=== PATIENT | female | born 1990 | race Caucasian/White ===

== ENCOUNTER 2017-09-21 11:30 | Emergency (ER) | payer OTHER ==
[2017-09-21] MEDS ORDERED: TYLENOL EXTRA STRENGTH 500 MG PO STA (11:47)
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
[2017-09-21] MEDS ORDERED: TYLENOL EXTRA STRENGTH 500 MG ONE (12:03)
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
[2017-09-21 12:38] VITALS: BP 128/72; PULSE 80; O2SAT 99
== END 2017-09-21 12:45 | disposition home or self-care (01) ==
LOC: ED 11:30
DX: S09.90XA Unspecified injury of head, initial encounter (principal); L98.9 Disorder of the skin and subcutaneous tissue, unspecified; W22.8XXA Striking against or struck by other objects, initial encounter; Y93.F9 Activity, other caregiving; Y92.129 Unspecified place in nursing home as the place of occurrence of the external cause
CPT/HCPCS: 70450; 99283; A9270-GY

== ENCOUNTER 2019-05-10 18:03 | Emergency (ER) | payer MEDICAID, OTHER ==
[2019-05-10 18:15] VITALS: O2SAT 100
--- NOTE | 2019-05-10 18:25 | ERPHSYRPT ---
- History of Present Illness Time Seen by Provider: 05/10/19 18:22 Source: patient Patient Subjective Stated Complaint: Pt states "I started to have abdominal pain today at work and I have already had a miscarraige and my doctor is worried." Triage Nursing Assessment: Pt presented alert and oriented X 3, skin pwd. PT ambulates with an upright steady gait, able to speak in clear full sentences pt in no apprent respiratory distress. g5, p3, Physician History: The patient is a 28-year-old -0-1-3 who is currently 8 weeks estimated gestational age by LMP reportedly on March 16, 2019 presents with a chief complaint of abdominal cramping, spotting, and concern for having a miscarriage. Onset reportedly was this morning. The patient reportedly spoke to her FOREIGN SERVICE OFFICER and Austin Shipley and was told to come to the emergency department for further evaluation and management. She is noticed having bilateral abdominal cramping that radiates to her back that is since resolved. She denies vomiting, diarrhea, constipation, vaginal discharge and vaginal hemorrhage at this time. There is no reported dizziness, near syncope or syncope. Silvia having nausea since she has been and recently just had a prescription of Zofran filled today. Associated Symptoms: nausea, abdominal pain, No vomiting Allergies/Adverse Reactions: No Known Drug Allergies Allergy (Verified 05/10/19 18:15) Home Medications: No Reportable Medications [No Reported Medications] 09/21/17 [History] Hx Tetanus, Diphtheria Vaccination/Date Given: Yes Hx Influenza Vaccination/Date Given: No Hx Pneumococcal Vaccination/Date Given: No Immunizations Up to Date: Yes - Review of Systems Constitutional: No Fever, No Chills Eyes: No Symptoms Ears, Nose, & Throat: No Symptoms Respiratory: No Cough, No Dyspnea, No Dyspnea on Exertion (LEWIS), No Stridor, No Wheezing Cardiac: No Chest Pain, No Palpitations, No Syncope Abdominal/Gastrointestinal: Abdominal Pain, Nausea, No Vomiting (Silvia having nausea since she has been and recently just had a prescription of Zofran filled today.), No Hematemesis, No Hematochezia Genitourinary Symptoms: , Vaginal Bleeding, No Dysuria, No Frequency, No Hematuria, No Vaginal Discharge, No Vaginal Itching Skin: No Symptoms Neurological: No Symptoms, No Headache, No Seizure All Other Systems: Reviewed and Negative - Past Medical History Pertinent Past Medical History: No - Past Surgical History Past Surgical History: Yes Other Surgical History: leap - Social History Smoking Status: Never smoker Exposure to second hand smoke: No Drug Use: none Patient Lives Alone: No - Female History Hx Last Menstrual Period: 03/16/2019 Hx Now: Yes Expected Date of Delivery: 12/22/19 - Nursing Vital Signs Nursing Vital Signs: Initial Vital Signs Temperature 98.1 F 05/10/19 18:09 Pulse Rate 102 H 05/10/19 18:09 Respiratory Rate 20 05/10/19 18:09 Blood Pressure 130/72 05/10/19 18:09 O2 Sat by Pulse Oximetry 100 05/10/19 18:09 Pain Scale Pain Intensity 4 - Physical Exam General Appearance: no apparent distress, alert, other (No obvious distress and the patient was watching television when I entered the room.) Eye Exam: PERRL/EOMI, No scleral icterus, No pale conjunctivae, No photophobia, No EOM palsy/anisocoria Ears, Nose, Throat Exam: normal ENT inspection, pharynx normal, No pharyngeal erythema, No tonsillar exudate Neck Exam: normal inspection, non-tender, supple Respiratory Exam: normal breath sounds, chest tenderness, lungs clear, airway intact, No respiratory distress, No diminished breath sounds Cardiovascular Exam: regular rate/rhythm, normal heart sounds, normal peripheral pulses, No murmur, No friction rub, No gallop, No tachycardia Gastrointestinal/Abdomen Exam: soft, No tenderness, No distention, No mass, No guarding, No ecchymosis Pelvic Exam: normal external exam, other (Cervix was normal in appearance. No discharge or blood in the vaginal vault. External cervical os was low), No cervical motion tenderness, No vaginal bleeding, No vaginal discharge Rectal Exam: deferred Back Exam: normal inspection Extremity Exam: normal inspection Neurologic Exam: alert, oriented x 3, cooperative, normal mood/affect Skin Exam: normal color, warm, dry, No rash SpO2 Interpretation: normal SpO2: 100 O2 Delivery: Room Air - Course Nursing assessment & vital signs reviewed: Yes Ordered Tests: Active Orders 24 hr Category Date Time Status IV Insertion STAT Care 05/10/19 18:22 Active Pelvic Exam Assist STAT Care 05/10/19 19:47 Active OB <14 WKS 1ST GESTATION [US] Stat Exams 05/10/19 18:23 Taken BMP Stat Lab 05/10/19 18:35 Completed CBC W DIFF Stat Lab 05/10/19 18:35 Completed HCG QUALITATIVE,SERUM Stat Lab 05/10/19 18:35 Completed UA W/RFX UR CULTURE Stat Lab 05/10/19 18:28 Completed Lab/Rad Data: Laboratory Result Diagrams 05/10/19 18:35 05/10/19 18:35 Laboratory Results 05/10/19 05/10/19 05/10/19 Range/Units 18:35 18:35 18:35 WBC (4.0-10.5) K/mm3 RBC (4.1-5.4) M/mm3 Hgb (12.0-16.0) gm/dl Hct (35-47) % MCV (78-100) fl MCH (26-32) pg MCHC (32-36) g/dl RDW (11.5-14.0) % Plt Count (150-450) K/mm3 MPV (7.5-11.0) fl Gran % (36.0-66.0) % Eos # (Auto) (0-0.5) Absolute Lymphs (auto) (1.0-4.6) Absolute Monos (auto) (0.0-1.3) Lymphocytes % (24.0-44.0) % Monocytes % (0.0-12.0) % Eosinophils % (0.00-5.0) % Basophils % (0.0-0.4) % Absolute Granulocytes (1.4-6.9) Basophils # (0-0.4) Sodium 135 L (137-145) mmol/L Potassium 3.2 L (3.5-5.1) mmol/L Chloride 101 (98-107) mmol/L Carbon Dioxide 26 (22-30) mmol/L Anion Gap 11.0 (5-15) MEQ/L BUN 5 L (7-17) mg/dL Creatinine 0.40 L (0.52-1.04) mg/dL Estimated GFR > 60.0 ML/MIN Glucose 89 (74-106) mg/dL Calcium 9.3 (8.4-10.2) mg/dL Serum , Qual POSITIVE (Negative) Urine Color (YELLOW) Urine Appearance (CLEAR) Urine pH (5-6) Ur Specific [place] (1.005-1.025) Urine Protein (Negative) Urine Ketones (NEGATIVE) Urine Blood (0-5) Nadir/ul Urine Nitrite (NEGATIVE) Urine Bilirubin (NEGATIVE) Urine Urobilinogen (0-1) mg/dL Ur Leukocyte Esterase (NEGATIVE) Urine WBC (Auto) (0-5) /HPF Urine RBC (Auto) (0-2) /HPF U Epithel Cells (Auto) (FEW) /HPF Urine Bacteria (Auto) (NEGATIVE) /HPF Urine Mucus (Auto) (NEGATIVE) /HPF Urine Culture Reflexed (NO) Urine Glucose (NEGATIVE) mg/dL ABO Group A Rh Factor POSITIVE Antibody Screen NEGATIVE (NEGATIVE) 05/10/19 05/10/19 Range/Units 18:35 18:28 WBC 12.1 H (4.0-10.5) K/mm3 RBC 4.17 (4.1-5.4) M/mm3 Hgb 11.1 L (12.0-16.0) gm/dl Hct 34.5 L (35-47) % MCV 82.7 (78-100) fl MCH 26.6 (26-32) pg MCHC 32.2 (32-36) g/dl RDW 14.1 H (11.5-14.0) % Plt Count 397 (150-450) K/mm3 MPV 9.4 (7.5-11.0) fl Gran % 73.5 H (36.0-66.0) % Eos # (Auto) 0.05 (0-0.5) Absolute Lymphs (auto) 2.42 (1.0-4.6) Absolute Monos (auto) 0.72 (0.0-1.3) Lymphocytes % 20.0 L (24.0-44.0) % Monocytes % 5.9 (0.0-12.0) % Eosinophils % 0.4 (0.00-5.0) % Basophils % 0.2 (0.0-0.4) % Absolute Granulocytes 8.90 H (1.4-6.9) Basophils # 0.02 (0-0.4) Sodium (137-145) mmol/L Potassium (3.5-5.1) mmol/L Chloride (98-107) mmol/L Carbon Dioxide (22-30) mmol/L Anion Gap (5-15) MEQ/L BUN (7-17) mg/dL Creatinine (0.52-1.04) mg/dL Estimated GFR ML/MIN Glucose (74-106) mg/dL Calcium (8.4-10.2) mg/dL Serum , Qual (Negative) Urine Color STRAW (YELLOW) Urine Appearance CLEAR (CLEAR) Urine pH 7.0 (5-6) Ur Specific [place] 1.008 (1.005-1.025) Urine Protein NEGATIVE (Negative) Urine Ketones NEGATIVE (NEGATIVE) Urine Blood SMALL (0-5) Nadir/ul Urine Nitrite NEGATIVE (NEGATIVE) Urine Bilirubin NEGATIVE (NEGATIVE) Urine Urobilinogen NEGATIVE (0-1) mg/dL Ur Leukocyte Esterase NEGATIVE (NEGATIVE) Urine WBC (Auto) NONE (0-5) /HPF Urine RBC (Auto) NONE (0-2) /HPF U Epithel Cells (Auto) NONE (FEW) /HPF Urine Bacteria (Auto) RARE (NEGATIVE) /HPF Urine Mucus (Auto) SLIGHT (NEGATIVE) /HPF Urine Culture Reflexed NO (NO) Urine Glucose NEGATIVE (NEGATIVE) mg/dL ABO Group Rh Factor Antibody Screen (NEGATIVE) - Progress Progress: unchanged Progress Note: 05/10/19 19:17 The technical buyer performed a transvaginal ultrasound confirming a twin intrauterine with cardiac activity. There are 2 amniotic sacs into yolk sacs and both ovaries are appear to be within normal limits. Baby A's crown-rump length appears to be 1.6 cm and baby B's crown-rump length appears to be 1.6 cm. 05/10/19 20:18 Nontoxic in appearance. Afebrile the patient appears to be well-hydrated. She has no evidence of active vaginal bleeding on my exam. She had no significant abdominal tenderness, specifically right lower quadrant abdominal tenderness to suggest appendicitis. Her work-up was relatively within normal limits and her Rh status was positive. Ultrasound demonstrated a twin IUP within the first trimester with no evidence of ectopic or adnexal mass or evidence of ovarian torsion. This was the techs review and currently awaiting formal radiology review per department policy. The patient was instructed to follow- up with her FOREIGN SERVICE OFFICER and to call and make an appointment to schedule outpatient follow-up and in the meantime, she was instructed to take Tylenol only for any aches or pains in addition to fever as instructed on the medication bottle and she can purchase this medication [id number]. He agreed with verbally understood the discharge plan. Counseled pt/family regarding: lab results, diagnosis, need for follow-up, rad results - Departure Departure Disposition: Home Clinical Impression: Abdominal pain during in first trimester, Vaginal bleeding, Threatened in first trimester Condition: Stable Critical Care Time: No Instructions: Threatened Miscarriage (DC), Bleeding With (DC) Additional Instructions: Please call and inform your FOREIGN SERVICE OFFICER about your ED work-up today and schedule an outpatient follow-up appointment at the discretion of your primary care provider.
[2019-05-10 18:48] LABS: BASOPHIL % 0.2 % (0.0-0.4); Basophil (Absolute #) 0.02 (0-0.4); Eosinophil % 0.4 % (0.00-5.0); Eosinophil (Absolute #) 0.05 (0-0.5); Hematocrit 34.5 % (35-47); Hemoglobin 11.1 gm/dl (12.0-16.0); Lymphocyte (Absolute #) 2.42 (1.0-4.6); Mean Cell Volume 82.7 fl (78-100); Mean Corpuscular Hemoglobin 26.6 pg (26-32); Mean Corpuscular Hgb Concent. 32.2 g/dl (32-36); Mean Platelet Volume 9.4 fl (7.5-11.0); Monocyte (Absolute #) 0.72 (0.0-1.3); Monocytes % 5.9 % (0.0-12.0); Neutrophil % 73.5 % (36.0-66.0); Platelet Count 397 K/mm3 (150-450); Red Blood Count 4.17 M/mm3 (4.1-5.4); Red Cell Distribution Width 14.1 % (11.5-14.0); White Blood Count 12.1 K/mm3 (4.0-10.5)
[2019-05-10 19:04] LABS: BLOOD UREA NITROGEN 5 mg/dL (7-17); CHLORIDE 101 mmol/L (98-107); Calcium 9.3 mg/dL (8.4-10.2); Carbon Dioxide 26 mmol/L (22-30); Glucose 89 mg/dL (74-106); Potassium 3.2 mmol/L (3.5-5.1); SODIUM 135 mmol/L (137-145)
[2019-05-10 19:15] LABS: Appearance CLEAR (CLEAR); Bacteria RARE /HPF (NEGATIVE); Bilirubin NEGATIVE (NEGATIVE); Blood SMALL Ery/ul (0-5); Glucose NEGATIVE (NEGATIVE); Ketones NEGATIVE (NEGATIVE); Leukocyte Esterase NEGATIVE (NEGATIVE); Mucus SLIGHT /HPF (NEGATIVE); Nitrite NEGATIVE (NEGATIVE); Protein,Urine Dip NEGATIVE (Negative); Specific Gravity 1.008 (1.005-1.025); Urobilinogen NEGATIVE mg/dL (0-1)
[2019-05-10 19:45] LABS: ABO TYPING A; Antibody Screen NEGATIVE (NEGATIVE); RH TYPING POSITIVE
[2019-05-10 19:52] VITALS: BP 137/70; PULSE 100
--- NOTE | 2019-05-11 08:36 | XRAY ---
Indication: Cramping and spotting. Two-dimensional transvaginal early OB ultrasound performed. Comparison: None There is a single intrauterine gestational sac with 2 poles and 2 yolk sacs. Mean crown-rump length for both twin A and twin B is 1.61 cm corresponding to 8 weeks 0 days. heart rate is 171 and 161 bpm. No abnormal subchorionic fluid. Left and right ovaries are unremarkable. No suspicious adnexal mass or free fluid. Impression: Viable intrauterine twin both measuring 8 weeks 0 days. Nothing acute. Comment: Preliminary report was given.
== END 2019-05-10 20:06 | disposition home or self-care (01) ==
LOC: ED 18:03
DX: O26.891 Other specified pregnancy related conditions, first trimester (principal); O20.0 Threatened abortion; Z3A.08 8 weeks gestation of pregnancy
CPT/HCPCS: 36000; 36415; 76801; 80048; 81001; 81025; 85025; 86850; 86900; 86901; 99284

== ENCOUNTER 2019-06-01 06:19 | Emergency (ER) | payer SELFPAY ==
[2019-06-01] MEDS ORDERED: Sodium Chloride 0.9% 1000 ML 1,000 ML IV STA (06:37)
[2019-06-01] MEDS ORDERED: Zofran 4 MG/2 ML VIAL IV ONE (06:37)
--- NOTE | 2019-06-01 06:37 | ERPHSYRPT ---
- History of Present Illness Source: patient Exam Limitations: no limitations Associated Symptoms: nausea, vomiting, loss of appetite, No abdominal pain, No shortness of breath, No cough, No fever, No headaches, No syncope Hx Tetanus, Diphtheria Vaccination/Date Given: Yes Hx Influenza Vaccination/Date Given: No Hx Pneumococcal Vaccination/Date Given: No <MARISELA PARR - Last Filed: 06/01/19 07:11> <SHE CORTEZ - Last Filed: 06/01/19 07:30> - History of Present Illness Time Seen by Provider: 06/01/19 06:28 Physician History: The patient is a 28 y/o female who is currently 11w1d with twin who presents with dizziness, nausea and vomiting. Onset reportedly was three days ago. She endorsed having multiple episodes of nonbilious/nonbloody vomiting and reports "dizziness" when standing. She reportedly has been unble to keep anything liquid of solid down. She believes she has been prescribed ondansetron to take for her nausea and vomiting, but she has not taken this medication in the last 48-hours because it doesn't work. She has an appointment scheduled with her OB this Thursday. She hand no additional complaints. She became dizzy at work and was instructed by her employer to leave and go to the ED to get evaluated. Her OB is Dr. Garcia. (MARISELA PARR) Allergies/Adverse Reactions: No Known Drug Allergies Allergy (Verified 06/01/19 06:28) Home Medications: Vits W-Ca,Fe,FA(<1Mg) [] 1 tab PO DAILY 06/01/19 [History] - Review of Systems Constitutional: No Fever, No Chills Eyes: No Symptoms Ears, Nose, & Throat: No Symptoms Respiratory: No Cough, No Dyspnea, No Dyspnea on Exertion (LEWIS) Cardiac: No Chest Pain, No Edema, No Palpitations, No Syncope, No Orthopnea, No PND Abdominal/Gastrointestinal: Nausea, Vomiting, No Abdominal Pain, No Diarrhea, No Constipation, No Hematemesis, No Hematochezia Genitourinary Symptoms: No Symptoms, No Dysuria, No Frequency, No Hematuria, No Vaginal Bleeding, No Vaginal Discharge Musculoskeletal: No Symptoms Skin: No Symptoms Neurological: Dizziness, No Focal Weakness, No Gait Changes, No Headache Endocrine: No Symptoms Hematologic/Lymphatic: No Symptoms Immunological/Allergic: No Symptoms All Other Systems: Reviewed and Negative <MARISELA PARR - Last Filed: 06/01/19 07:11> - Past Medical History Pertinent Past Medical History: No - Past Surgical History Past Surgical History: Yes Other Surgical History: leap - Social History Smoking Status: Never smoker Exposure to second hand smoke: No Drug Use: none Patient Lives Alone: No <MARISELA PARR - Last Filed: 06/01/19 07:11> - Physical Exam General Appearance: no apparent distress Eye Exam: PERRL/EOMI Ears, Nose, Throat Exam: normal ENT inspection Neck Exam: normal inspection Respiratory Exam: normal breath sounds, lungs clear, No chest tenderness, No respiratory distress Cardiovascular Exam: regular rate/rhythm, normal heart sounds, normal peripheral pulses, capillary refill <2 sec, No murmur, No friction rub, No gallop Gastrointestinal/Abdomen Exam: soft, No tenderness, No distention, No mass, No guarding, No ecchymosis Pelvic Exam: not done Rectal Exam: deferred Back Exam: normal inspection Extremity Exam: normal inspection Neurologic Exam: alert, oriented x 3, cooperative Skin Exam: normal color, warm, dry, No rash, No petechiae, No jaundice SpO2 Interpretation: normal O2 Delivery: Room Air <MARISELA PARR - Last Filed: 06/01/19 07:11> - Nursing Vital Signs Nursing Vital Signs: Initial Vital Signs Temperature 98.1 F 06/01/19 06:31 Pulse Rate 98 H 06/01/19 06:31 Respiratory Rate 18 06/01/19 06:31 Blood Pressure 121/75 06/01/19 06:31 O2 Sat by Pulse Oximetry 100 06/01/19 06:31 Pain Scale Pain Intensity 0 - Course Nursing assessment & vital signs reviewed: Yes <MARISELA PARR - Last Filed: 06/01/19 07:11> Ordered Tests: Active Orders 24 hr Category Date Time Status IV Insertion STAT Care 06/01/19 06:37 Active BMP Stat Lab 06/01/19 06:45 Completed CBC W DIFF Stat Lab 06/01/19 06:45 Completed Medication Summary Generic Name Dose Route Start Last Admin Trade Name Freq PRN Reason Stop Dose Admin Sodium Chloride 1,000 mls @ 999 mls/hr 06/01/19 06:37 06/01/19 06:52 Sodium Chloride 0.9% 1000 Ml IV 06/01/19 07:37 999 mls/hr .Q1H1M STA Administration Discontinued Medications Generic Name Dose Route Start Last Admin Trade Name Dariusz PRN Reason Stop Dose Admin Sodium Chloride Confirm 06/01/19 06:50 Sodium Chloride 0.9% 1000 Ml Administered 06/01/19 06:51 Dose 1,000 mls @ ud .ROUTE .STK-MED ONE Ondansetron HCl 4 mg 06/01/19 06:37 06/01/19 06:53 Zofran 4 Mg/2 Ml Vial IV 06/01/19 06:38 4 mg STAT ONE Administration Ondansetron HCl Confirm 06/01/19 06:50 Zofran 4 Mg/2 Ml Vial Administered 06/01/19 06:51 Dose 4 mg .ROUTE .STK-MED ONE Lab/Rad Data: Laboratory Result Diagrams 06/01/19 06:45 06/01/19 06:45 Laboratory Results 06/01/19 06/01/19 Range/Units 06:45 06:45 WBC 7.8 (4.0-10.5) K/mm3 RBC 3.92 L (4.1-5.4) M/mm3 Hgb 10.6 L (12.0-16.0) gm/dl Hct 32.1 L (35-47) % MCV 81.9 (78-100) fl MCH 27.0 (26-32) pg MCHC 33.0 (32-36) g/dl RDW 13.9 (11.5-14.0) % Plt Count 371 (150-450) K/mm3 MPV 9.5 (7.5-11.0) fl Gran % 68.2 H (36.0-66.0) % Eos # (Auto) 0.04 (0-0.5) Absolute Lymphs (auto) 1.83 (1.0-4.6) Absolute Monos (auto) 0.59 (0.0-1.3) Lymphocytes % 23.6 L (24.0-44.0) % Monocytes % 7.6 (0.0-12.0) % Eosinophils % 0.5 (0.00-5.0) % Basophils % 0.1 (0.0-0.4) % Absolute Granulocytes 5.29 (1.4-6.9) Basophils # 0.01 (0-0.4) Sodium 138 (137-145) mmol/L Potassium 3.7 (3.5-5.1) mmol/L Chloride 105 (98-107) mmol/L Carbon Dioxide 23 (22-30) mmol/L Anion Gap 12.5 (5-15) MEQ/L BUN 6 L (7-17) mg/dL Creatinine 0.33 L (0.52-1.04) mg/dL Estimated GFR > 60.0 ML/MIN Glucose 89 (74-106) mg/dL Calcium 8.8 (8.4-10.2) mg/dL <MARISLEA PARR - Last Filed: 06/01/19 07:11> - Progress Counseled pt/family regarding: lab results, diagnosis, need for follow-up <SHE CORTEZ - Last Filed: 06/01/19 07:30> - Progress Progress Note: 06/01/19 06:57 Nontoxic in appearance. Afebrile and clinically appears hydrated. Orthostatic VS obtained and wnl. Suspect complaint may be secondary to possible volume depletion/dehydration due to N/V secondary to twin . Plan to obtain screening labs to include CBC/BMP and will administer 1 L of NS for now in addition to IV ondansetron. Will PO challenge and once tolerating oral fluids, plan to discharge the patient home to f/u with her FACILITY TECHNICIAN as scheduled. Dr. Cortez pending lab results and reassessment (MARISELA PARR) 06/01/19 07:29 Patient's labs reviewed. Patient symptoms improving. Discharged to home as planned with follow-up as instructed (SHE CORTEZ) - Departure Departure Disposition: Extended Care Facility Critical Care Time: No <MARISELA PARR - Last Filed: 06/01/19 07:11> - Departure Departure Disposition: Home <SHE CORTEZ - Last Filed: 06/01/19 07:30> - Departure Clinical Impression: Nausea and vomiting during prior to 22 weeks gestation, Orthostasis Condition: Good Referrals: TC JARQUIN [Primary Care Provider] - Instructions: Dizziness, Nonvertigo, (DC), Nausea and Vomiting of (DC ) Additional Instructions: Please drink plenty of water and follow-up with your frame hand as scheduled. Please take your medication as prescribed. Forms: Work/School Release Form Prescriptions: Ondansetron [Ondansetron Odt] 4 - 8 mg PO Q8HPRN PRN #20 tab.rapdis PRN Reason: Nausea/Vomiting Kaitlynn Root/Pyridoxine HCl(B6) [Vicectin 25-325 mg Capsule] 1 each PO Q6-8HPRN PRN #30 capsule PRN Reason: Nausea/Vomiting
[2019-06-01 06:45] VITALS: O2SAT 100
[2019-06-01] MEDS ORDERED: Zofran 4 MG/2 ML VIAL ONE (06:50)
[2019-06-01] MEDS ORDERED: Sodium Chloride 0.9% 1000 ML 1,000 ML ONE (06:50)
[2019-06-01 06:52] LABS: Absolute Neutrophil Ct (ANC) 5.29 (1.4-6.9); BASOPHIL % 0.1 % (0.0-0.4); Basophil (Absolute #) 0.01 (0-0.4); Eosinophil % 0.5 % (0.00-5.0); Eosinophil (Absolute #) 0.04 (0-0.5); Hematocrit 32.1 % (35-47); Hemoglobin 10.6 gm/dl (12.0-16.0); Lymphocyte (Absolute #) 1.83 (1.0-4.6); Lymphocytes % 23.6 % (24.0-44.0); Mean Cell Volume 81.9 fl (78-100); Mean Platelet Volume 9.5 fl (7.5-11.0); Monocyte (Absolute #) 0.59 (0.0-1.3); Monocytes % 7.6 % (0.0-12.0); Neutrophil % 68.2 % (36.0-66.0); Platelet Count 371 K/mm3 (150-450); Red Blood Count 3.92 M/mm3 (4.1-5.4); Red Cell Distribution Width 13.9 % (11.5-14.0); White Blood Count 7.8 K/mm3 (4.0-10.5)
[2019-06-01 07:01] LABS: ANION GAP 12.5 MEQ/L (5-15); BLOOD UREA NITROGEN 6 mg/dL (7-17); CHLORIDE 105 mmol/L (98-107); Calcium 8.8 mg/dL (8.4-10.2); Carbon Dioxide 23 mmol/L (22-30); Creatinine 1 0.33 mg/dL (0.52-1.04); Glucose 89 mg/dL (74-106); Potassium 3.7 mmol/L (3.5-5.1); SODIUM 138 mmol/L (137-145)
[2019-06-01 08:25] VITALS: BP 111/80; PULSE 71
== END 2019-06-01 08:20 | disposition home or self-care (01) ==
LOC: ED 06:19
DX: O21.2 Late vomiting of pregnancy (principal); Z3A.22 22 weeks gestation of pregnancy
CPT/HCPCS: 36000; 36415; 80048; 85025; 96360; 96374; 99284; J2405

== ENCOUNTER 2019-08-17 22:08 | Observation (INO) | payer OTHER ==
[2019-08-17 22:54] LABS: Appearance CLOUDY (CLEAR); Bacteria MANY /HPF (NEGATIVE); Bilirubin NEGATIVE (NEGATIVE); Blood NEGATIVE Ery/ul (0-5); Epithelial Cells RARE /HPF (FEW); Glucose NEGATIVE (NEGATIVE); Ketones TRACE (NEGATIVE); Leukocyte Esterase MODERATE (NEGATIVE); Mucus SLIGHT /HPF (NEGATIVE); Nitrite NEGATIVE (NEGATIVE); Protein,Urine Dip NEGATIVE (Negative); Specific Gravity 1.012 (1.005-1.025); Urobilinogen 2 mg/dL (0-1)
[2019-08-17 23:16] LABS: Amphetamine,Urine NEGATIVE (NEGATIVE); Barbiturate,Urine NEGATIVE (NEGATIVE); Benzodiazepine,Urine NEGATIVE (NEGATIVE); Cocaine,Urine NEGATIVE (NEGATIVE); Methadone,Urine NEGATIVE (NEGATIVE); Opiate,Urine NEGATIVE (NEGATIVE); PCP,Urine NEGATIVE (NEGATIVE); THC,Urine NEGATIVE (NEGATIVE)
[2019-08-18 02:38] VITALS: PULSE 91; O2SAT 99
[2019-08-18 04:45] VITALS: BP 104/71
== END 2019-08-18 00:20 | disposition home or self-care (01) ==
LOC: OB 22:08
PROVIDERS: ADMIT Family Medicine; ATTEND Family Medicine
DX: Z34.82 Encounter for supervision of other normal pregnancy, second trimester (principal)
CPT/HCPCS: 80307; 81001; 87086; G0378

== ENCOUNTER 2020-12-04 17:53 | Emergency (ER) | payer MEDICAID, OTHER ==
--- NOTE | 2020-12-04 17:56 | ERPHSYRPT ---
- History of Present Illness Time Seen by Provider: 12/04/20 17:56 Physician History: This is a 30-year-old white female who has had worsening sore throat and right ear pain the last 2 to 3 days. Her throat hurts worse on the right than the left. She had a low-grade fever. She had no nausea vomiting or diarrhea. She has no cough. She has no abdominal pain. She has no nausea vomiting or diarrhea. Timing/Duration: day(s) (2 to 3 days) Fever Severity: mild Fever Therapy THREAT MONITORING ANALYST: none Associated Symptoms: sore throat Allergies/Adverse Reactions: No Known Drug Allergies Allergy (Verified 06/01/19 06:28) Hx Tetanus, Diphtheria Vaccination/Date Given: Yes Hx Influenza Vaccination/Date Given: No Hx Pneumococcal Vaccination/Date Given: No Travel Risk - International Travel Have you traveled outside of the country in past 3 weeks: No - Coronavirus Screening Are you exhibiting any of the following symptoms?: No Close contact with a COVID-19 positive Pt in past 14-21 Days: No - Review of Systems Constitutional: Fever Eyes: No Symptoms (Low-grade) Ears, Nose, & Throat: Ear Pain (Right), Throat Pain (Right side greater than left but it is on both sides) Respiratory: No Symptoms Cardiac: No Symptoms Abdominal/Gastrointestinal: No Symptoms Genitourinary Symptoms: No Symptoms Musculoskeletal: No Symptoms Skin: No Symptoms Neurological: No Symptoms Psychological: No Symptoms Endocrine: No Symptoms Hematologic/Lymphatic: No Symptoms Immunological/Allergic: No Symptoms All Other Systems: Reviewed and Negative - Past Medical History Pertinent Past Medical History: No Neurological History: No Pertinent History ENT History: No Pertinent History Cardiac History: No Pertinent History Respiratory History: No Pertinent History Endocrine Medical History: No Pertinent History Musculoskeletal History: No Pertinent History GI Medical History: No Pertinent History History: No Pertinent History Psycho-Social History: No Pertinent History Female Reproductive Disorders: No Pertinent History - Past Surgical History Past Surgical History: Yes Neuro Surgical History: No Pertinent History Cardiac: No Pertinent History Respiratory: No Pertinent History Gastrointestinal: No Pertinent History Genitourinary: No Pertinent History Musculoskeletal: No Pertinent History Female Surgical History: No Pertinent History Other Surgical History: leap - Social History Smoking Status: Unknown if ever smoked Exposure to second hand smoke: No Drug Use: none Patient Lives Alone: No - Nursing Vital Signs Nursing Vital Signs: Initial Vital Signs Temperature 99.8 F 12/04/20 17:58 Pulse Rate 103 H 12/04/20 17:58 Respiratory Rate 20 12/04/20 17:58 Blood Pressure 129/86 12/04/20 17:58 O2 Sat by Pulse Oximetry 100 12/04/20 17:58 Pain Scale Pain Intensity 4 - Physical Exam General Appearance: no apparent distress, alert, anxiety Eye Exam: PERRL/EOMI, eyes nml inspection ENT Exam: hearing grossly normal, tonsillar exudate (Right side swollen with exudate left side mildly swollen), airway intact Neck Exam: normal inspection, non-tender, supple, full range of motion, trachea midline, lymphadenopathy (R) (Mild upper submandibular chain) Respiratory Exam: normal breath sounds, lungs clear, no respiratory distress, no accessory muscle use, No chest non-tender, No respiratory distress Cardiovascular/Chest Exam: normal heart sounds, regular rate/rhythm, normal peripheral pulses, No murmur Gastrointestinal/Abdominal Exam: soft, non tender, no distention, no mass, no guarding, no ecchymosis, no organomegaly, no pulsatile mass, normal bowel sounds Pelvic Exam: not done Rectal Exam: not done Extremity Exam: non-tender, normal range of motion, normal inspection Neurologic Exam: alert, oriented x 3, cooperative, test lead II-XII nml as tested, normal mood/affect, nml cerebellar function, nml station & gait, sensation nml Skin Exam: normal color, warm, dry Lymphatic: adenopathy (See above) SpO2 Interpretation: normal O2 Delivery: Room Air - Course Nursing assessment & vital signs reviewed: Yes Ordered Tests: Medication Summary Discontinued Medications Generic Name Dose Route Start Last Admin Trade Name Dariusz PRN Reason Stop Dose Admin Ceftriaxone Sodium 1,000 mg 12/04/20 18:48 Rocephin 1000 Mg Inj IM 12/04/20 18:49 STAT ONE Lab/Rad Data: Laboratory Results 12/04/20 Range/Units 18:19 Group A Strep Antibody NOT DETECTED (NEGATIVE) - Progress Progress: unchanged - Departure Departure Disposition: Home Clinical Impression: Tonsillitis with exudate Condition: Stable Critical Care Time: No Referrals: KODI CARMONA [Primary Care Provider] - Additional Instructions: Drink plenty of fluids. Take ibuprofen as discussed for fever control and pain control. Take your medications as prescribed. Follow-up with your primary care physician for persistent symptoms. Prescriptions: Hydrocodone/Acetaminophen [Hydrocodone-Acetamn 7.5-325/15] 10 ml PO Q8H PRN PRN #120 ml MDD 30 ml PRN Reason: Cough Amoxicillin 500 mg Cap [Amoxil 500 mg] 500 mg PO TID #30 cap
[2020-12-04 18:03] VITALS: BP 129/86; PULSE 103; O2SAT 100
[2020-12-04] MEDS ORDERED: Rocephin 1000 MG INJ IM ONE (18:48)
[2020-12-04] MEDS ORDERED: XYLOCAINE 1% HCL 20 ML MDV ONE (18:56)
[2020-12-04] MEDS ORDERED: Rocephin 1000 MG INJ ONE (18:56)
== END 2020-12-04 19:20 | disposition home or self-care (01) ==
LOC: ED 17:53
DX: J03.90 Acute tonsillitis, unspecified (principal)
CPT/HCPCS: 87651; 96372; 99284; J0696